=== PATIENT | male | born 1980 | race Caucasian/White ===

== ENCOUNTER 2022-06-01 18:44 | Observation (INO) | payer BC ==
[2022-06-01 19:31] LABS: #Basophils 0.1 thou/uL (0.0-0.2); #Eosinphils 0.1 thou/uL (0.0-0.7); #Lymphocytes 2.8 thou/uL (1.20-3.40); #Monocytes 1.3 thou/uL (0.11-0.59); #Neutrophils 13.6 thou/uL (1.40-6.50); %Basophils 0.4 % (0.0-1.0); %Eosinophils 0.5 % (0.0-10.0); %Lymphocytes 15.7 % (21.0-51.0); %Monocytes 7.3 % (0.0-10.0); %Neutrophils 76.1 % (42.0-75.0); Hemoglobin 16.5 g/dL (14.0-18.0); Mean Corpuscular HGB CONC 33.4 g/dL (32.0-36.0); Mean Corpuscular Hemoglobin 31.3 pg (27.0-31.0); Mean Corpuscular Volume 93.7 fL (78.0-98.0); Platelet Count 365 thou/uL (130-400); RBC Distribution Width 11.8 % (11.5-14.5); Red Blood Cell (RBC) Count 5.28 mill/uL (4.70-6.10); White Blood Cell (WBC) Count 17.9 thou/uL (4.8-10.8)
[2022-06-01 19:52] LABS: ALT (SGPT) 38 U/L (8-55); AST (SGOT) 30 U/L (5-34); Albumin 4.9 g/dL (3.5-5.0); Alkaline Phosphatase 100 U/L (40-110); Anion Gap 23 mmol/L (10-20); BUN (Urea Nitrogen) 25 mg/dL (8.9-20.6); Bilirubin, Total 0.6 mg/dL (0.2-1.2); CK (CPK) 405 U/L (30-200); Calc. Creatinine Clearance 0 mL/min (70-130); Calcium 10.2 mg/dL (7.8-10.44); Carbon Dioxide 24 mmol/L (22-29); Chloride 94 mmol/L (98-107); Estimated GFR 28; Globulin 3.4 g/dL (2.4-3.5); Glucose 111 mg/dL (70-105); Potassium 4.2 mmol/L (3.5-5.1); Protein, Total 8.3 g/dL (6.0-8.3); Sodium 137 mmol/L (136-145)
[2022-06-01] MEDS ORDERED: Aspirin 325 MG TAB ONE (20:14)
[2022-06-01] MEDS ORDERED: Nitroglycerin 0.4 MG TAB 1 EACH ONE ×3 (20:31→21:35)
[2022-06-01] MEDS ORDERED: Nitroglycerin 2% Ointment 1 INCH/1 GM Packet ONE (21:35)
[2022-06-01] MEDS ORDERED: Enoxaparin Sodium 100 MG/ML SYRINGE ONE (22:05)
[2022-06-01] MEDS ORDERED: Morphine 2 MG/ML VIAL ONE (22:05)
[2022-06-01 23:21] VITALS: BMI 29.1
[2022-06-02 00:47] LABS: Troponin I 0.062 ng/mL (< 0.028)
[2022-06-02] MEDS ORDERED: Acetaminophen 325 MG TAB PO PRN (01:00)
[2022-06-02] MEDS ORDERED: Ondansetron ODT 4 MG TAB SL PRN (01:00)
[2022-06-02] MEDS ORDERED: Ondansetron PF 4 MG/2 ML Vial IVP PRN (01:00)
[2022-06-02] MEDS: Sodium Chloride 0.9% 1,000 ML IV SCH ×2 (01:23→09:16)
[2022-06-02] MEDS ORDERED: Nitroglycerin 2% Ointment 1 INCH/1 GM Packet TOP SCH (04:00)
[2022-06-02] MEDS ORDERED: Nitroglycerin 0.4 MG TAB (25 Tab Bottle) SL PRN (04:46)
[2022-06-02 05:20] LABS: #Basophils 0.1 thou/uL (0.0-0.2); #Eosinphils 0.2 thou/uL (0.0-0.7); #Lymphocytes 3.2 thou/uL (1.20-3.40); #Monocytes 0.9 thou/uL (0.11-0.59); #Neutrophils 5.1 thou/uL (1.40-6.50); %Eosinophils 2.4 % (0.0-10.0); %Lymphocytes 33.8 % (21.0-51.0); %Monocytes 9.2 % (0.0-10.0); %Neutrophils 53.6 % (42.0-75.0); Mean Corpuscular Hemoglobin 31.5 pg (27.0-31.0); Mean Corpuscular Volume 95.3 fL (78.0-98.0); Mean Platelet Volume 6.7 fL (7.4-10.4); Platelet Count 297 thou/uL (130-400); RBC Distribution Width 11.7 % (11.5-14.5); Red Blood Cell (RBC) Count 4.46 mill/uL (4.70-6.10); White Blood Cell (WBC) Count 9.6 thou/uL (4.8-10.8)
[2022-06-02 05:32] LABS: Troponin I 0.039 ng/mL (< 0.028)
[2022-06-02 05:49] LABS: Anion Gap 21 mmol/L (10-20); BUN (Urea Nitrogen) 25 mg/dL (8.9-20.6); Calc. Creatinine Clearance 104 mL/min (70-130); Calcium 8.5 mg/dL (7.8-10.44); Carbon Dioxide 21 mmol/L (22-29); Chloride 101 mmol/L (98-107); Estimated GFR 72; Glucose 96 mg/dL (70-105); Potassium 3.5 mmol/L (3.5-5.1); Sodium 139 mmol/L (136-145)
[2022-06-02] MEDS ORDERED: Regadenoson 0.4 MG/5 ML SYRINGE ONE (12:59)
[2022-06-02 16:09] VITALS: BP 122/65; TEMP 98
[2022-06-03] MEDS ORDERED: Heparin 5,000 UNITS/ML VIAL SC SCH (09:00)
== END 2022-06-02 18:45 | disposition home or self-care (01) ==
LOC: ERS 18:44 → 2SW 22:14
PROVIDERS: ADMIT Nurse Practitioner Family; ATTEND Nurse Practitioner Family
DX: R07.9 Chest pain, unspecified (principal); R53.1 Weakness; N17.9 Acute kidney failure, unspecified; U07.1 COVID-19; D72.829 Elevated white blood cell count, unspecified; Z87.891 Personal history of nicotine dependence; Z91.14 Patient's other noncompliance with medication regimen; Z91.013 Allergy to seafood
CPT/HCPCS: 36415; 71045; 78452; 80048; 80053; 82550; 82553; 84484; 85025; 93005; 93017; A9500; G0378; J1650; J2270; J2785; J7050

== ENCOUNTER 2022-10-15 20:14 | Emergency (ER) | payer BC ==
[2022-10-15] MEDS ORDERED: HYDROcodone/Acetaminophen 10/325 mg Tablet ONE (21:26)
== END 2022-10-15 21:30 | disposition home or self-care (01) ==
LOC: ERS 20:14
DX: K42.9 Umbilical hernia without obstruction or gangrene (principal); F17.290 Nicotine dependence, other tobacco product, uncomplicated
CPT/HCPCS: 99283

== ENCOUNTER 2022-10-17 08:50 | Observation (INO) | payer BC ==
[2022-10-17 09:24] LABS: #Basophils 0.1 thou/uL (0.0-0.2); #Eosinphils 0.2 thou/uL (0.0-0.7); #Lymphocytes 1.7 thou/uL (1.20-3.40); #Monocytes 0.3 thou/uL (0.11-0.59); #Neutrophils 3.1 thou/uL (1.40-6.50); %Basophils 1.5 % (0.0-1.0); %Eosinophils 3.8 % (0.0-10.0); %Lymphocytes 31.6 % (21.0-51.0); %Monocytes 6.1 % (0.0-10.0); Hemoglobin 15.9 g/dL (14.0-18.0); Mean Corpuscular HGB CONC 32.1 g/dL (32.0-36.0); Mean Corpuscular Hemoglobin 31.3 pg (27.0-31.0); Mean Corpuscular Volume 97.3 fl (78.0-98.0); Mean Platelet Volume 7.2 fL (7.4-10.4); Platelet Count 269 10x3/uL (130-400); RBC Distribution Width 11.4 % (11.5-14.5); White Blood Cell (WBC) Count 5.5 10x3/uL (4.8-10.8)
[2022-10-17 09:52] LABS: ALT (SGPT) 25 U/L (8-55); AST (SGOT) 20 U/L (5-34); Alkaline Phosphatase 83 U/L (40-110); Anion Gap 11 mmol/L (10-20); BUN (Urea Nitrogen) 14 mg/dL (8.9-20.6); Bilirubin, Total 0.6 mg/dL (0.2-1.2); Calc. Creatinine Clearance 0 mL/min (70-130); Calcium 8.9 mg/dL (7.8-10.44); Carbon Dioxide 25 mmol/L (22-29); Chloride 107 mmol/L (98-107); Estimated GFR 112; Globulin 2.8 g/dL (2.4-3.5); Glucose 102 mg/dL (70-105); Lipase 131 U/L (8-78); Potassium 3.9 mmol/L (3.5-5.1); Protein, Total 6.8 g/dL (6.0-8.3); Sodium 139 mmol/L (136-145)
[2022-10-17] MEDS ORDERED: Iopamidol-370 76% 500 ML 1 ML ONE (11:47)
[2022-10-17] MEDS ORDERED: Ondansetron PF 4 MG/2 ML Vial ONE (12:20)
[2022-10-17] MEDS ORDERED: Pantoprazole 40 MG VIAL ONE (12:24)
[2022-10-17] MEDS ORDERED: FENTANYL 50 MCG/ML 1 ML VIAL ONE (12:24)
[2022-10-17 13:23] LABS: Bilirubin Negative (Negative); Blood, Urine Negative (Negative); Clarity Turbid (Clear); Glucose, Urine (Dipstick) Normal (Negative); Ketone, Urine Negative (Negative); Leukocyte Negative Leu/uL (Negative); Nitrite Negative (Negative); Protein, Urine (Dipstick) Negative (Neg-Trace); Specific Gravity, Urine 1.033 (1.002-1.036); Urobilinogen Normal mg/dL (Less than 2); pH, Urine 7.5 (5.0-9.0)
[2022-10-17 15:06] VITALS: BMI 27.7
[2022-10-17 15:43] LABS: Hemoglobin 15.1 g/dL (14.0-18.0)
[2022-10-17 15:58] LABS: Prothrombin Time 13.1 sec (12.0-14.7)
[2022-10-17 16:33] LABS: SARS-CoV-2 NAA Rapid Test Not Detected (NotDetected)
[2022-10-17] MEDS ORDERED: GoLYTELY 4,000 ml Bottle PO SCH (17:30)
[2022-10-17] MEDS ORDERED: FENTANYL 50 MCG/ML 1 ML VIAL SLOW IVP PRN (21:12)
[2022-10-17] MEDS ORDERED: Sodium Chloride 0.9% 1,000 ML IV SCH (21:15)
[2022-10-17] MEDS ORDERED: Ondansetron ODT 4 MG TAB SL PRN (21:15)
[2022-10-17] MEDS ORDERED: Acetaminophen 325 MG TAB PO PRN (21:15)
[2022-10-17] MEDS ORDERED: Ondansetron PF 4 MG/2 ML Vial IVP PRN (21:15)
[2022-10-18 06:00] LABS: #Basophils 0.1 thou/uL (0.0-0.2); #Eosinphils 0.2 thou/uL (0.0-0.7); #Lymphocytes 2.7 thou/uL (1.20-3.40); #Monocytes 0.5 thou/uL (0.11-0.59); %Basophils 1.2 % (0.0-1.0); %Eosinophils 3.3 % (0.0-10.0); %Monocytes 6.7 % (0.0-10.0); %Neutrophils 52.8 % (42.0-75.0); Hemoglobin 15.5 g/dL (14.0-18.0); Mean Corpuscular HGB CONC 32.8 g/dL (32.0-36.0); Mean Corpuscular Hemoglobin 32.4 pg (27.0-31.0); Mean Corpuscular Volume 98.8 fl (78.0-98.0); Mean Platelet Volume 7.1 fL (7.4-10.4); Platelet Count 268 10x3/uL (130-400); RBC Distribution Width 11.5 % (11.5-14.5); Red Blood Cell (RBC) Count 4.78 mill/uL (4.70-6.10); White Blood Cell (WBC) Count 7.5 10x3/uL (4.8-10.8)
[2022-10-18 06:18] LABS: ALT (SGPT) 26 U/L (8-55); AST (SGOT) 22 U/L (5-34); Albumin 3.8 g/dL (3.5-5.0); Alkaline Phosphatase 69 U/L (40-110); Anion Gap 9 mmol/L (10-20); BUN (Urea Nitrogen) 10 mg/dL (8.9-20.6); Bilirubin, Total 0.7 mg/dL (0.2-1.2); Calc. Creatinine Clearance 146 mL/min (70-130); Calcium 8.5 mg/dL (7.8-10.44); Carbon Dioxide 27 mmol/L (22-29); Chloride 105 mmol/L (98-107); Estimated GFR 110; Globulin 2.5 g/dL (2.4-3.5); Glucose 95 mg/dL (70-105); Potassium 3.8 mmol/L (3.5-5.1); Protein, Total 6.3 g/dL (6.0-8.3); Sodium 137 mmol/L (136-145)
[2022-10-18] MEDS ORDERED: Pantoprazole 40 MG VIAL IVP SCH (09:00)
[2022-10-18] MEDS ORDERED: Lidocaine 1% MPF 2 ML VIAL ONE (14:49)
[2022-10-18] MEDS ORDERED: Midazolam HCl 2 mg/2 ml Vial ONE (14:49)
[2022-10-18] MEDS ORDERED: fentaNYL PF 100 MCG/2 ML SYRINGE ONE (16:12)
[2022-10-18] MEDS ORDERED: PROPOFOL 200 MG/20 ML VIAL ONE (16:33)
[2022-10-18 18:22] VITALS: BP 135/86; TEMP 97.7
== END 2022-10-18 21:03 | disposition home or self-care (01) ==
LOC: ERS 08:50 → ERHOLD 12:19 → MSONC 12:19
PROVIDERS: ADMIT Internal Medicine; ATTEND Internal Medicine
PROC: 0DJ08ZZ Inspection of Upper Intestinal Tract, Via Natural or Artificial Opening Endoscopic (ICD-10-PCS; principal; 2022-10-18)
PROC: 0DJD8ZZ Inspection of Lower Intestinal Tract, Via Natural or Artificial Opening Endoscopic (ICD-10-PCS; 2022-10-18)
DX: K92.1 Melena (principal); K42.9 Umbilical hernia without obstruction or gangrene; K64.8 Other hemorrhoids; R10.33 Periumbilical pain; R10.13 Epigastric pain; N20.0 Calculus of kidney; F10.21 Alcohol dependence, in remission; Z87.891 Personal history of nicotine dependence; Z79.899 Other long term (current) drug therapy; Z91.013 Allergy to seafood; Z20.822 Contact with and (suspected) exposure to COVID-19
CPT/HCPCS: 36415; 74177; 76705; 80053; 81003; 82274; 83690; 85025; 85610; 86850; 86900; 86901; 87338; 96374; 96375; 96376; C9113; G0378; J2250; J2405; J2704; J3010; J7050; Q9967; U0002

== ENCOUNTER 2022-11-08 11:14 | Outpatient (CLI) | payer BC ==
[2022-11-08 11:56] LABS: #Basophils 0.1 10x3/uL (0.0-0.2); #Eosinphils 0.2 10x3/uL (0.0-0.5); #Monocytes 0.5 10x3/uL (0.0-1.1); #Neutrophils 2.8 10x3/uL (1.5-8.4); %Basophils 1.3 % (0.0-2.0); %Eosinophils 2.9 % (0.0-6.0); %Lymphocytes 43.4 % (18.0-47.0); %Neutrophils 44.2 % (40.0-75.0); Hemoglobin 15.5 g/dL (13.5-17.5); Mean Corpuscular HGB CONC 34.5 g/dL (32.0-36.0); Mean Corpuscular Hemoglobin 31.4 pg (27.0-33.0); Mean Corpuscular Volume 90.9 fl (81.2-95.1); Mean Platelet Volume 9.1 fl (7.4-10.4); Platelet Count 290 10x3/uL (150-450); Red Blood Cell (RBC) Count 4.94 10x6/uL (4.32-5.72); White Blood Cell (WBC) Count 6.2 10x3/uL (3.5-10.5)
[2022-11-08 12:11] LABS: Anion Gap 10 mmol/L (10-20); BUN (Urea Nitrogen) 14 mg/dL (8.9-20.6); Calc. Creatinine Clearance 0 mL/min (70-130); Calcium 9.2 mg/dL (7.8-10.44); Carbon Dioxide 27 mmol/L (22-29); Chloride 105 mmol/L (98-107); Estimated GFR 110; Glucose 93 mg/dL (70-105); Sodium 138 mmol/L (136-145)
== END 2022-11-08 11:15 | disposition home or self-care (01) ==
LOC: LABBT 11:14
PROVIDERS: ATTEND Specialist
DX: Z01.812 Encounter for preprocedural laboratory examination (principal); K42.9 Umbilical hernia without obstruction or gangrene
CPT/HCPCS: 80048; 85025

== ENCOUNTER 2022-11-10 08:55 | Day surgery (SDC) | payer BC ==
[2022-11-09 12:29] VITALS: BMI 27.7
[2022-11-10] MEDS ORDERED: Acetaminophen 500 MG TAB ONE (09:19)
[2022-11-10] MEDS ORDERED: Ketorolac Tromethamine 30 MG/ML VIAL ONE (09:19)
[2022-11-10] MEDS ORDERED: CEFAZOLIN 2 GM VIAL ONE (09:19)
[2022-11-10] MEDS ORDERED: Sodium Chloride 0.9% 100 ML ONE (09:19)
[2022-11-10] MEDS ORDERED: Fentanyl 250 MCG/5 ML VIAL ONE (10:18)
[2022-11-10] MEDS ORDERED: Bupivacaine/Epinephrine 0.25% 30 ML VIAL ONE (11:02)
[2022-11-10] MEDS ORDERED: Fentanyl 100 MCG/2 ML VIAL ONE ×3 (11:08→12:58)
[2022-11-10] MEDS ORDERED: Metoclopramide HCl 10 MG/2 ML VIAL ONE (12:52)
== END 2022-11-10 14:46 | disposition home or self-care (01) ==
LOC: SDC 08:55
PROVIDERS: ATTEND Specialist
PROC: 0WUF0JZ Supplement Abdominal Wall with Synthetic Substitute, Open Approach (ICD-10-PCS; principal; 2022-11-10)
DX: K42.9 Umbilical hernia without obstruction or gangrene (principal); Z86.16 Personal history of COVID-19; Z87.891 Personal history of nicotine dependence; Z79.899 Other long term (current) drug therapy; Z91.013 Allergy to seafood
CPT/HCPCS: C1889; J1885; J2765; J3010; J3490

== ENCOUNTER 2024-11-04 10:29 | Emergency (ER) | payer BC ==
[2024-11-04 11:43] LABS: #Basophils 0.09 10x3/uL (0.0-0.2); %Basophils 1.1 % (0.0-1.0); %Eosinophils 2.5 % (0.0-10.0); %Lymphocytes 22.4 % (21.0-51.0); %Monocytes 6.9 % (0.0-10.0); %Neutrophils 66.7 % (42.0-75.0); Hemoglobin 14.7 g/dL (14.0-18.0); Mean Corpuscular HGB CONC 32.7 g/dL (32.0-36.0); Mean Corpuscular Hemoglobin 30.6 pg (27.0-31.0); Mean Corpuscular Volume 93.8 fL (78.0-98.0); Mean Platelet Volume 8.8 fL (7.4-10.4); Platelet Count 319 10x3/uL (130-400); RBC Distribution Width 12.3 % (11.5-14.5)
[2024-11-04 12:02] LABS: ALT (SGPT) 34 U/L (8-55); AST (SGOT) 32 U/L (5-34); Albumin 3.5 g/dL (3.5-5.0); Alkaline Phosphatase 92 U/L (40-110); Anion Gap 13 mmol/L (10-20); BUN (Urea Nitrogen) 11 mg/dL (8.9-20.6); Bilirubin, Total 0.4 mg/dL (0.2-1.2); Calc. Creatinine Clearance 0 mL/min (70-130); Calcium 8.4 mg/dL (7.8-10.44); Carbon Dioxide 24 mmol/L (22-29); Chloride 106 mmol/L (98-107); Estimated GFR 108; Globulin 3.2 g/dL (2.4-3.5); Glucose 82 mg/dL (70-105); Lipase 163 U/L (8-78); Potassium 3.8 mmol/L (3.5-5.1); Protein, Total 6.7 g/dL (6.0-8.3); Sodium 139 mmol/L (136-145)
[2024-11-04] MEDS ORDERED: Iopamidol-370 76% 500 ML MDV (1 ML CHARGE) ONE (13:00)
[2024-11-04 13:25] LABS: Bacteria/HPF None Seen HPF (None Seen); Bilirubin Negative (Negative); Blood, Urine Negative (Negative); CAUTI Indications for Culture Dysuria,urgency,freq; Clarity Clear (Clear); Glucose, Urine (Dipstick) Normal (Negative); Ketone, Urine Negative (Negative); Leukocyte Negative Leu/uL (Negative); Nitrite Negative (Negative); Protein, Urine (Dipstick) Negative (Neg-Trace); RBC/HPF None Seen HPF (0-3); Specific Gravity, Urine 1.007 (1.002-1.036); Squamous Epithelial None Seen HPF (0-3); Urobilinogen Normal mg/dL (Less than 2); WBC/HPF 0-3 HPF (0-3)
[2024-11-04 13:40] LABS: Urine Culture Reflex No No
[2024-11-04] MEDS ORDERED: Ondansetron PF 4 MG/2 ML Vial ONE (14:09)
[2024-11-04] MEDS ORDERED: Pantoprazole 40 MG VIAL ONE (14:09)
[2024-11-04] MEDS ORDERED: Morphine 4 MG/ML VIAL ONE ×2 (14:09→16:43)
[2024-11-04 16:40] LABS: Troponin I 0.018 ng/mL (< 0.028)
== END 2024-11-04 17:08 | disposition home or self-care (01) ==
LOC: ERS 10:29
DX: N20.0 Calculus of kidney (principal); R10.13 Epigastric pain; R19.7 Diarrhea, unspecified; R74.8 Abnormal levels of other serum enzymes; E27.9 Disorder of adrenal gland, unspecified; K76.89 Other specified diseases of liver; Z87.891 Personal history of nicotine dependence
CPT/HCPCS: 36415; 74177; 76705; 80053; 81001; 83690; 84484; 85025; 96361; 96374; 96375; 96376; J2272; J2405; J2470; Q9967